=== PATIENT | female | born 1970 | race Caucasian/White ===

== ENCOUNTER 2020-05-06 10:04 | Day surgery (SDC) | payer MEDICAID ==
[~2020-05-06] VITALS: Ht 154.9 cm; Wt 122.9 kg
[2020-05-06] VITALS (11 sets, daily range): BP systolic 93–125; BP diastolic 57–83; PULSE 59–75; TEMP 97.9
[2020-05-06] MEDS ORDERED: DITROPAN 5MG TAB5 MG PO (10:31)
[2020-05-06] MEDS ORDERED: ASPIRIN E.C. 8181 MG PO (10:32)
[2020-05-06] MEDS ORDERED: ZETIA 10MG TAB10 MG PO (10:32)
[2020-05-06] MEDS ORDERED: CYMBALTA 60MG60 MG PO (10:33)
[2020-05-06] MEDS ORDERED: PAXIL 10MG10 MG PO (10:33)
[2020-05-06] MEDS ORDERED: NORCO 325 MG-51 TAB PO (10:34)
[2020-05-06] MEDS ORDERED: COREG12.5 MG PO (10:34)
[2020-05-06] MEDS ORDERED: XANAX 1MG1 MG PO (10:35)
[2020-05-06] MEDS ORDERED: LYRICA300 MG PO (10:36)
[2020-05-06] MEDS ORDERED: NORVASC 5MG5 MG/TAB PO (10:36)
[2020-05-06] MEDS ORDERED: LIPITOR 80MG80 MG PO (10:37)
[2020-05-06] MEDS ORDERED: PREVACID 15MG15 M1 PO (10:38)
[2020-05-06] MEDS ORDERED: NITROSTAT0.4 MG/TAB SL (10:38)
[2020-05-06 11:28] LABS: HEMATOCRIT 40.3 % (37.0-47.0); MEAN CELL VOLUME 83 fl (80.0-100.0); MEAN CORPUSCULAR HEMOGLOBIN 27 pg (27.0-31.0); MEAN CORPUSCULAR HGB CONC 32 g/dl (33.0-37.0); MEAN PLATELET VOLUME 9.4 fl (7.4-10.4); PLATELET COUNT 282 K/mm3 (130-400); RED BLOOD COUNT 4.88 M/mm3 (4.10-5.30); REDCELL DISTRIBUTION WIDTH-CV 15.5 % (11.5-14.5)
[2020-05-06 11:33] LABS: PROTHROMBIN TIME 11.7 SECONDS (9.7-12.8)
[2020-05-06 11:36] LABS: PARTIAL THROMBOPLASTIN TIME 36.2 SECONDS (26.0-37.0)
[2020-05-06 11:43] LABS: CALCIUM 8.6 mg/dL (8.4-10.2); CREATININE, serum 1.04 (0.52-1.25); POTASSIUM 4.1 mmol/L (3.4-5.0)
== END 2020-05-06 19:04 | disposition home or self-care (01) ==
LOC: COL.CAR 10:04
PROVIDERS: Internal Medicine Interventional Cardiology
DX: R07.89 Other chest pain (principal); I10 Essential (primary) hypertension; E78.5 Hyperlipidemia, unspecified; Z77.22 Contact with and (suspected) exposure to environmental tobacco smoke (acute) (chronic); Z79.899 Other long term (current) drug therapy
CPT/HCPCS: C1769; J1644; J2250; J3010; Q9967

== ENCOUNTER → 2023-01-04 | Outpatient (CLI) | payer MEDICARE, MEDICAID ==
[~2023-01-04] MED LIST: ASPIRIN E.C. 8181 MG PO; COREG12.5 MG PO; CYMBALTA 60MG60 MG PO; DITROPAN 5MG TAB5 MG PO; LIPITOR 80MG80 MG PO; LYRICA300 MG PO; NITROSTAT0.4 MG/TAB SL; NORCO 325 MG-51 TAB PO; NORVASC 5MG5 MG/TAB PO; PAXIL 10MG10 MG PO; PREVACID 15MG15 M1 PO; XANAX 1MG1 MG PO; ZETIA 10MG TAB10 MG PO
== END ==
LOC: MHCPAIN 10:18
DX: M54.50 Low back pain, unspecified (principal); M47.896 Other spondylosis, lumbar region; M54.6 Pain in thoracic spine; M47.814 Spondylosis without myelopathy or radiculopathy, thoracic region; Z98.1 Arthrodesis status; M50.30 Other cervical disc degeneration, unspecified cervical region; R26.89 Other abnormalities of gait and mobility
CPT/HCPCS: G0463

== ENCOUNTER → 2023-01-04 | Outpatient (CLI) | payer MEDICARE, MEDICAID | LOC: COL.LAB 12:20 | DX: M47.896 Other spondylosis, lumbar region (principal); M47.814 Spondylosis without myelopathy or radiculopathy, thoracic region; M50.30 Other cervical disc degeneration, unspecified cervical region; R26.89 Other abnormalities of gait and mobility; H50.10 Unspecified exotropia; Z98.84 Bariatric surgery status; Z98.1 Arthrodesis status ==

== ENCOUNTER → 2023-01-30 | Outpatient (CLI) | payer MEDICARE, MEDICAID | LOC: MHCPAIN 09:53 | DX: M51.34 Other intervertebral disc degeneration, thoracic region (principal); M54.50 Low back pain, unspecified; M47.896 Other spondylosis, lumbar region; M53.3 Sacrococcygeal disorders, not elsewhere classified; M54.6 Pain in thoracic spine; Z98.1 Arthrodesis status; R26.89 Other abnormalities of gait and mobility; H50.10 Unspecified exotropia | CPT/HCPCS: G0463 ==

== ENCOUNTER → 2023-07-04 | Outpatient (CLI) | payer MEDICARE, MEDICAID | LOC: MHCPAIN 11:16 | DX: M54.50 Low back pain, unspecified (principal); M47.816 Spondylosis without myelopathy or radiculopathy, lumbar region; Z98.1 Arthrodesis status; M51.34 Other intervertebral disc degeneration, thoracic region; R26.89 Other abnormalities of gait and mobility | CPT/HCPCS: G0463 ==